=== PATIENT | female | born 1970 | race Hispanic/Latino ===

== ENCOUNTER 2017-04-23 16:54 | Emergency (ER) | payer MEDICARE, MEDICAID ==
[2017-04-23] MEDS ORDERED: Ondansetron ODT 4 MG TAB ONE (17:17)
[2017-04-23] MEDS ORDERED: Ketorolac Tromethamine 30 MG/ML VIAL ONE (17:17)
== END 2017-04-23 18:02 | disposition home or self-care (01) ==
LOC: ERS 16:54
DX: J11.1 Influenza due to unidentified influenza virus with other respiratory manifestations (principal); E11.9 Type 2 diabetes mellitus without complications; F41.9 Anxiety disorder, unspecified; Z87.891 Personal history of nicotine dependence
CPT/HCPCS: 94640; 96372; J1885; J7620; Q0162

== ENCOUNTER 2017-09-12 19:27 | Emergency (ER) | payer MEDICARE, MEDICAID ==
[2017-09-12] MEDS ORDERED: Sulfameth/Trimethoprim DS 800-160mg TAB ONE (20:01)
[2017-09-12] MEDS ORDERED: Ondansetron ODT 8 MG TAB ONE (20:01)
[2017-09-12] MEDS ORDERED: Cephalexin 250 MG CAP ONE (20:01)
[2017-09-12] MEDS ORDERED: Ketorolac Tromethamine 30 MG/ML VIAL ONE (20:06)
== END 2017-09-12 20:41 | disposition home or self-care (01) ==
LOC: ERS 19:27
DX: N61.0 Mastitis without abscess (principal); B37.2 Candidiasis of skin and nail; R11.0 Nausea; E11.9 Type 2 diabetes mellitus without complications; F41.9 Anxiety disorder, unspecified; Z87.891 Personal history of nicotine dependence; Z79.4 Long term (current) use of insulin; Z79.899 Other long term (current) drug therapy
CPT/HCPCS: 96372; J1885

== ENCOUNTER 2017-09-28 14:45 | Outpatient (CLI) | payer MEDICARE, MEDICAID | END 2017-09-28 14:46 | disposition home or self-care (01) | LOC: BICMRI 14:45 | PROVIDERS: ATTEND Orthopaedic Surgery | DX: M46.92 Unspecified inflammatory spondylopathy, cervical region (principal); M47.22 Other spondylosis with radiculopathy, cervical region | CPT/HCPCS: 72141 ==

== ENCOUNTER 2017-12-14 11:20 | Outpatient (CLI) | payer MEDICARE, MEDICAID ==
[2017-12-14 12:47] LABS: Hemoglobin 14.2 g/dL (12.0-16.0); Mean Corpuscular HGB CONC 32.6 g/dL (32.0-36.0); Mean Corpuscular Hemoglobin 28.6 pg (27.0-31.0); Mean Corpuscular Volume 87.8 fL (78.0-98.0); Mean Platelet Volume 7.6 fL (7.4-10.4); Platelet Count 276 thou/uL (130-400); RBC Distribution Width 11.8 % (11.5-14.5); Red Blood Cell (RBC) Count 4.96 mill/uL (4.20-5.40); White Blood Cell (WBC) Count 9.2 thou/uL (4.8-10.8)
[2017-12-14 12:57] LABS: PTT 32.3 SEC (22.9-36.1); Prothrombin Time 13.7 SEC (12.0-14.7)
[2017-12-14 13:18] LABS: Anion Gap 15 mmol/L (10-20); BUN (Urea Nitrogen) 10 mg/dL (7.0-18.7); Calc. Creatinine Clearance 0 mL/min (70-130); Calcium 9.7 mg/dL (7.8-10.44); Carbon Dioxide 19 mmol/L (22-29); Chloride 109 mmol/L (98-107); Estimated GFR-MDRD 87; Glucose 109 mg/dL (70-105); Potassium 3.8 mmol/L (3.5-5.1); Sodium 139 mmol/L (136-145)
--- NOTE | 2017-12-15 07:35 | EKG ---
Test Reason : Blood Pressure : / mmHG Vent. Rate : 084 BPM Atrial Rate : 084 BPM P-R Int : 132 ms QRS Dur : 082 ms QT Int : 354 ms P-R-T Axes : 037 -21 025 degrees QTc Int : 418 ms Normal sinus rhythm Cannot rule out Anterior infarct , age undetermined Abnormal ECG When compared with ECG of 16-NOV-2013 19:02, No significant change was found Confirmed by DR. Devante MACIAS ([id number]) on 12/15/2017 7:35:19 AM Referred By: XOCHILT Confirmed By:DR. Devante MACIAS
== END 2017-12-14 11:21 | disposition home or self-care (01) ==
LOC: LABBT 11:20
PROVIDERS: ATTEND Surgery
DX: Z01.818 Encounter for other preprocedural examination (principal); M54.12 Radiculopathy, cervical region; M48.02 Spinal stenosis, cervical region
CPT/HCPCS: 80048; 85027; 85610; 85730; 93005; 93010

== ENCOUNTER 2017-12-21 06:56 | Day surgery (SDC) | payer MEDICARE, MEDICAID ==
[2017-12-14 12:02] VITALS: BMI 46.3
[2017-12-21] MEDS ORDERED: CEFAZOLIN/Water 2 GM/20 ML SYRINGE ONE (08:59)
[2017-12-21] MEDS ORDERED: Midazolam HCl 2 mg/2 ml Vial ONE ×3 (09:22→12:19)
[2017-12-21] MEDS ORDERED: Fentanyl 100 MCG/2 ML VIAL ONE ×5 (09:55→15:20)
[2017-12-21] MEDS ORDERED: Thrombin 5000 UNITS/5 ML VIAL ONE (10:07)
[2017-12-21] MEDS ORDERED: Sodium Chloride 0.9% 10 ML ONE (10:07)
[2017-12-21] MEDS ORDERED: Promethazine HCl 25 MG/ML VIAL SLOW IVP PRN (11:39)
[2017-12-21] MEDS ORDERED: HYDROmorphone 2 MG/ML VIAL SLOW IVP PRN (11:39)
[2017-12-21] MEDS ORDERED: Morphine Sulfate 2 MG/ML SYRINGE SLOW IVP PRN (11:39)
[2017-12-21] MEDS ORDERED: Promethazine HCl 25 MG/ML VIAL IM PRN ×2 (11:39→12:23)
[2017-12-21] MEDS ORDERED: Ondansetron HCl/PF 4 MG/2 ML Vial IVP PRN (11:39)
[2017-12-21] MEDS ORDERED: Meperidine HCl/PF 25 MG/ML VIAL SLOW IVP PRN (11:39)
[2017-12-21] MEDS ORDERED: Milk Of Magnesia 30 ML UDCUP PO PRN (12:23)
[2017-12-21] MEDS ORDERED: Acetaminophen 325 MG TAB PO PRN (12:23)
[2017-12-21] MEDS ORDERED: Mag-Al 1200 mg/1200 mg/30 ML UDCUP PO PRN (12:23)
[2017-12-21] MEDS ORDERED: Bisacodyl 10 MG SUPP PR PRN (12:23)
[2017-12-21] MEDS ORDERED: Fleet Enema 133 ML BOT PR PRN (12:23)
[2017-12-21] MEDS ORDERED: traMADol HCl 50 MG TAB PO PRN (12:23)
[2017-12-21] MEDS ORDERED: HumaLOG 300 UNITS/3 ML VIAL SC PRN (12:29)
--- NOTE | 2017-12-21 13:43 | OP ---
OR: OR #12. WOUND TYPE: Type 1 wound. SURGEON: Jorge Calvillo M.D. IRRIGATION TAX ASSESSOR COLLECTOR: Winston Foote PA-C. PREPROCEDURE DIAGNOSES: C4-C5 disk extrusion with myelopathy and radiculopathy. POSTPROCEDURE DIAGNOSES: C4-C5 disk extrusion with myelopathy and radiculopathy. PROCEDURE: 1. Anterior C4-C5 diskectomy for decompression of spinal cord and C5 nerve roots. 2. Preparation of endplates for interbody spacer placement packed with local bone autograft obtained from same incision, allograft for arthrodesis. 3. Anterior cervical plate and screw fixation C4-C5. 4. Use of operative microscope for microdissection. PROCEDURE IN DETAIL: After informed consent was obtained from the patient, the patient brought to OR #12. Proper patient pause and identification was carried out. She was placed in excellent general endotracheal anesthesia and positioned supine on the OR table. All appropriate points were well-padd ed, right anterior oblique mattie was drawn out over the right anterior neck that allow for approach to C4-C5 segment. This region was sterilely cleansed, prepared, and draped. Proper patient pause and identification was carried out. The wound was then opened with a combination of sharp, monopolar and blunt dissection proceeded lateral to the larynx and pharynx and medial to the right carotid sheath. We identified the prevertebral layer of deep cervical fascia and the longus colli muscles were swep t laterally. Retractors were placed. Localization film confirmed our area of interest. We then per formed distraction and the microscope was brought in for microdissection. A diskectomy was performed with excellent decompression of the common dural tube and bilateral C5 nerve roots. The endplates w ere prepared, interbody spacer was packed, local bone autograft obtained from same incision, allograf t, and placed at C4-C5 arthrodesis. Copious irrigation, maximizing hemostasis occurred throughout. We then placed a plate of appropriate dimension affixed this to the C4-C5 segments with final tighten ing of the screws. Copious irrigation again occurred as did maximizing hemostasis. The wound was th en closed in anatomic layers over a drain. The patient then emerged from anesthesia.
[2017-12-21] MEDS: Sodium Chloride 0.9% 1,000 ML IV SCH ×2 (17:07→21:01)
[2017-12-21] MEDS: HYDROcodone/Acetaminophen 7.5/325 mg Tablet PO PRN (17:34)
[2017-12-21] MEDS: CEFAZOLIN/Water 2 GM/20 ML SYRINGE SLOW IVP SCH ×2 (19:44→20:56)
[2017-12-21] MEDS ORDERED: EMPAGLIFLOZIN PO SCH (21:00)
[2017-12-21] MEDS ORDERED: METFORMIN HCL PO SCH (21:00)
[2017-12-21] MEDS: tiZANidine HCl 4 MG TAB PO PRN (22:13)
[2017-12-22] MEDS: tiZANidine HCl 4 MG TAB PO PRN ×2 (05:47→11:25)
[2017-12-22] MEDS: CEFAZOLIN/Water 2 GM/20 ML SYRINGE SLOW IVP SCH (05:48)
[2017-12-22] MEDS: HYDROcodone/Acetaminophen 7.5/325 mg Tablet PO PRN (08:59)
[2017-12-22] MEDS ORDERED: INSULIN DEGLUDEC 40 UNIT SC SCH (09:00)
[2017-12-22 12:00] VITALS: BP 116/76; TEMP 97.8
--- NOTE | 2017-12-22 22:35 | DIS-2 ---
Winston Foote PA-C, dictating for Jorge Calvillo MD. DATE OF ADMISSION: 12/21/2017 DATE OF DISCHARGE: 12/22/2017 DISCHARGE DIAGNOSES: 1. Cervical myelopathy and radiculopathy. 2. Cervical herniated nucleus pulposus. 3. Neck pain with bilateral upper extremity pain. HOSPITAL COURSE: Ms. Carter was admitted to undergo C4-C5 ACDF with Dr. Calvillo. Her surgery was witho ut complication and she required one overnight stay to recover postoperatively. At the time of disch arge, she had almost complete resolution of the bilateral upper extremity symptoms, but did have some posterior neck pain. Her JOHN drain was removed and appropriate postoperative education and followup appointments were provided to the patient. At the time of discharge, she has good strength in her bi lateral upper extremities and was walking well. She certainly understood to call the office with que stions or concerns, but otherwise doing well postoperatively.
== END 2017-12-22 12:22 | disposition home or self-care (01) ==
LOC: SDC 06:56 → SURG B 16:53 → SDC 12-22 12:22
PROVIDERS: ATTEND Surgery
PROC: 0RG10A0 Fusion of Cervical Vertebral Joint with Interbody Fusion Device, Anterior Approach, Anterior Column, Open Approach (ICD-10-PCS; principal; 2017-12-21)
PROC: 0RT30ZZ Resection of Cervical Vertebral Disc, Open Approach (ICD-10-PCS; 2017-12-21)
DX: M50.021 Cervical disc disorder at C4-C5 level with myelopathy (principal); M50.121 Cervical disc disorder at C4-C5 level with radiculopathy; Z79.4 Long term (current) use of insulin; Z79.899 Other long term (current) drug therapy; Z88.7 Allergy status to serum and vaccine; Z96.651 Presence of right artificial knee joint
CPT/HCPCS: 36416; 76001; 96374; 96375; 96376; A4216; C1713; C1776; J0131; J2250; J2270; J3010; J3490

== ENCOUNTER 2018-02-07 08:37 | Outpatient (CLI) | payer MEDICARE, MEDICAID ==
--- NOTE | 2018-02-07 10:50 | RAD ---
3 VIEWS CERVICAL SPINE: Date: 02/07/18 COMPARISON: None. HISTORY: Neck pain. Patient has had anterior fusion. FINDINGS: AP, lateral, and open-mouth odontoid views of the cervical spine show the patient to be status post a nterior fusion of C4 and C5 with plate and screws. A disc spacer is seen in good position within the disc space. No prevertebral soft tissue swelling is seen. The vertebral bodies demonstrate normal ali gnment without subluxation. IMPRESSION: Postsurgical changes of the cervical spine, without evidence of complication. POS: VIVI
== END 2018-02-07 08:38 | disposition home or self-care (01) ==
LOC: TBSIIMAG 08:37
PROVIDERS: ATTEND Surgery
DX: M48.02 Spinal stenosis, cervical region (principal); Z98.1 Arthrodesis status
CPT/HCPCS: 72040

== ENCOUNTER 2018-08-10 14:39 | Outpatient (CLI) | payer MEDICARE, MEDICAID ==
--- NOTE | 2018-08-10 15:22 | RAD ---
4 views lumbar spine: 08/10/2018 COMPARISON: None HISTORY: Low back pain with left lower extremity radiculopathy FINDINGS: Lumbar pedicles are intact on frontal imaging. There is facet hypertrophy at L4-5 and L5-S1 . There is disc space narrowing with degenerative endplate changes as well as anterior and posterior osteophyte formation at L5-S1. There is no anterolisthesis or retrolisthesis noted on the n eutral, extension, or flexion lateral views. IMPRESSION: Degenerative change at the lumbosacral junction. No acute findings.
--- NOTE | 2018-08-10 15:28 | MRI ---
EXAM: Lumbar spine MRI without contrast. HISTORY: Low back pain M54.5 COMPARISON: None FINDINGS: Multiplanar, multisequence MRI examination of the lumbar spine is performed. The conus medullaris region appears unremarkable. No evidence for abnormal marrow signal. Generalized disc desiccation changes and ligament and facet hypertrophic changes. T12-L1 disc level: Unremarkable. L1-L2 disc level: Unremarkable. L2-L3 disc level: Mild foraminal stenosis left greater than right L3-L4 disc level: Posterior lateral protrusions with right posterior lateral annular fissure and mode rate right foraminal stenosis. L4-L5 disc level: Diffuse disc bulging with mild bilateral foraminal stenosis. L5-S1 disc level: Focal central and left central protrusion changes with left lateral recess stenosis and left foraminal stenosis with some compression of the left S1 nerve root. IMPRESSION: Focal central and left central protrusion at L5-S1 with left lateral recess and left foraminal stenos is and left S1 nerve root compression. Additional multilevel variable severity foraminal stenosis.
== END 2018-08-10 14:40 | disposition home or self-care (01) ==
LOC: TBSIIMAG 14:39
PROVIDERS: ATTEND Physician Assistant Surgical
DX: M47.27 Other spondylosis with radiculopathy, lumbosacral region (principal); M48.07 Spinal stenosis, lumbosacral region; M51.17 Intervertebral disc disorders with radiculopathy, lumbosacral region; G54.8 Other nerve root and plexus disorders
CPT/HCPCS: 72110; 72148

== ENCOUNTER 2018-08-15 14:26 | Outpatient (CLI) | payer MEDICARE, OTHER ==
--- NOTE | 2018-08-15 16:15 | MRI ---
MR of the left shoulder without contrast INDICATION: Left shoulder pain. Left shoulder pain that extends in the left arm with loss of range o f motion since November 2017. TECHNIQUE: Sagittal T1, axial and coronal PD fat sat, sagittal and coronal T2 fat sat images were obt ained of the left shoulder. COMPARISON: None FINDINGS: Motion artifact limits image detail. Rotator cuff: No full-thickness rotator cuff tear is evident. There is severe tendinosis involving th e supraspinatus and infraspinatus. There is some suggestion of some bursal surface irregularity involving the anterior to mid supraspinatus at the footprint. Glenohumeral joint: Not well seen due to motion artifact Glenoid labrum: There is heterogeneous increased T2 signal involving the superior glenoid labrum and biceps anchor suspicious for degenerative changes of the superior glenoid labrum and biceps anchor. Biceps tendon and biceps anchor: There is severe tendinosis of the intra-articular course of the long head of the biceps tendon. The biceps tendon is located. Acromion clavicular joint: There is moderate to severe AC joint osteoarthrosis Subacromial subdeltoid space: Small amount of fluid is seen within the subacromial subdeltoid bursa. Axillary region: No lymphadenopathy. Surrounding shoulder musculature: Normal. No evidence of atrophy or strain. IMPRESSION: 1. Severe supraspinatus and infraspinatus tendinosis with mild bursal surface irregularity involving the anterior to mid supraspinatus. No full-thickness rotator cuff tear is demonstrated. 2. Severe tendinosis of the intra-articular biceps tendon with prominent degenerative fraying of the superior glenoid labrum and biceps anchor complex. 3. Moderate to severe AC joint osteoarthrosis.
== END 2018-08-15 14:27 | disposition home or self-care (01) ==
LOC: BICMRI 14:26
PROVIDERS: ATTEND Orthopaedic Surgery
DX: M25.512 Pain in left shoulder (principal); M75.82 Other shoulder lesions, left shoulder; M75.22 Bicipital tendinitis, left shoulder; M19.012 Primary osteoarthritis, left shoulder

== ENCOUNTER 2019-02-02 16:01 | Emergency (ER) | payer MEDICARE, MEDICAID ==
--- NOTE | 2019-02-02 16:43 | RAD ---
XR Chest Pa Lat STANDARD HISTORY: Cough COMPARISON: 05/02/2016 FINDINGS: The heart size is normal. The lungs are well expanded without focal areas of consolidation, pneumothorax or pleural effusions. There is continued elevation the right hemidiaphragm. There are postop changes in the lower cervical spine and the right humerus. IMPRESSION: No radiographic evidence of acute cardiopulmonary process.
[2019-02-02 16:49] LABS: #Lymphocytes 2.1 thou/uL (1.20-3.40); #Monocytes 0.5 thou/uL (0.11-0.59); #Neutrophils 4.9 thou/uL (1.40-6.50); %Basophils 0.2 % (0.0-1.0); %Eosinophils 0.4 % (0.0-10.0); %Lymphocytes 28.2 % (21.0-51.0); %Monocytes 5.9 % (0.0-10.0); %Neutrophils 65.4 % (42.0-75.0); Hemoglobin 14.7 g/dL (12.0-16.0); Mean Corpuscular Hemoglobin 29.9 pg (27.0-31.0); Mean Corpuscular Volume 90.7 fL (78.0-98.0); Mean Platelet Volume 7.3 fL (7.4-10.4); Platelet Count 236 thou/uL (130-400); RBC Distribution Width 11.9 % (11.5-14.5); Red Blood Cell (RBC) Count 4.93 mill/uL (4.20-5.40); White Blood Cell (WBC) Count 7.5 thou/uL (4.8-10.8)
[2019-02-02 17:00] LABS: BHCG - Serum Negative (NEGATIVE); Pregs Control Background? CLEAR/WHITE (CLR/WHITE); Pregs Control Bar Appear? YES (CONTROL BAR)
[2019-02-02 17:16] LABS: ALT (SGPT) 34 U/L (8-55); AST (SGOT) 33 U/L (5-34); Albumin 4.5 g/dL (3.5-5.0); Alkaline Phosphatase 74 U/L (40-110); Anion Gap 11 mmol/L (10-20); BUN (Urea Nitrogen) 13 mg/dL (7.0-18.7); Bilirubin, Total 0.4 mg/dL (0.2-1.2); CK (CPK) 119 U/L (29-168); Calc. Creatinine Clearance 0 mL/min (70-130); Calcium 9.4 mg/dL (7.8-10.44); Carbon Dioxide 24 mmol/L (22-29); Chloride 105 mmol/L (98-107); Estimated GFR-MDRD 82; Globulin 2.9 g/dL (2.4-3.5); Glucose 199 mg/dL (70-105); Lipase 54 U/L (8-78); Potassium 3.5 mmol/L (3.5-5.1); Protein, Total 7.4 g/dL (6.0-8.3); Sodium 136 mmol/L (136-145)
[2019-02-02 18:15] LABS: T4 8.4 ug/dL (4.87-11.72); Thyroid Stimulating Hormone 0.6545 uIU/mL (0.35-4.94)
== END 2019-02-02 18:28 | disposition home or self-care (01) ==
LOC: ERS 16:01
DX: R05 Cough (principal); E11.9 Type 2 diabetes mellitus without complications; F41.9 Anxiety disorder, unspecified; Z87.891 Personal history of nicotine dependence; Z79.4 Long term (current) use of insulin
CPT/HCPCS: 36415; 71046; 80053; 82550; 83690; 83880; 84436; 84443; 84484; 84703; 85025; 85379; 93005; 94640; J7620

== ENCOUNTER 2019-04-14 09:02 | Outpatient (CLI) | payer MEDICARE, MEDICAID ==
--- NOTE | 2019-04-14 09:50 | MMO ---
Bilateral MAMMO Bilat Diag [facility]. CLINICAL HISTORY: Patient is 48 years old and is seen for diagnostic exam. The patient has the following family history of breast cancer: maternal aunt, at age 50. The patient has no personal history of cancer. VIEWS: The views performed were: bilateral craniocaudal with tomosynthesis; bilateral mediolateral oblique with tomosynthesis; and bilateral mediolateral with tomosynthesis. FILMS COMPARED: The present examination has been compared to prior imaging studies performed at [facility] on 10/18/2015, 11/17/2016, 03/31/2019 and 04/14/2019. This study has been interpreted with the assistance of computer-aided detection. MAMMOGRAM FINDINGS: There are scattered fibroglandular densities. There is no radiographic abnormality in the region of the palpable abnormality in the right breast at 1 o'clock. No sonographic abnormality is seen in the region of palpable abnormality. In the left breast, there are no suspicious masses, calcifications or areas of architectural distortion. IMPRESSION: THERE IS NO MAMMOGRAPHIC EVIDENCE OF MALIGNANCY. NO MAMMOGRAPHIC OR SONOGRAPHIC ABNORMALITIES ARE PRESENT TO CORRELATE WITH THE SITE OF PALPABLE CONCERN. THE PATIENT WILL BE REFERRED BACK TO HER CLINICIAN FOR FURTHER CARE. BIOPSY SHOULD NOT BE PRECLUDED BY THE ABSCENCE OF IMAGING FINDINGS, IN THE SETTING OF CLINICAL CONCERN FOR MALIGNANCY. THE PATIENT WAS NOTIFIED OF THE EXAM RESULTS PRIOR TO LEAVING THE CENTER. A ROUTINE FOLLOW-UP MAMMOGRAM IN 1 YEAR IS RECOMMENDED. THE RESULTS OF THIS EXAM WERE SENT TO THE PATIENT. ACR BI-RADS Category 1 - Negative MAMMOGRAPHY NOTE: 1. A negative mammogram report should not delay a biopsy if a dominant of clinically suspicious mass is present. 2. Approximately 10% to 15% of breast cancers are not detected by mammography. 3. Adenosis and dense breasts may obscure an underlying neoplasm. Reported by: MICHELL EDWARDS MD Electonically Signed: [id number]
--- NOTE | 2019-04-14 10:31 | ULT ---
RIGHT BREAST DIAGNOSTIC MAMMOGRAM: INDICATIONS: Palpable abnormality in the right breast in the 1 o'clock position, 6 cm from the nipple. FINDINGS: No suspicious sonographic abnormality seen within the palpable region of interest in the right breast . IMPRESSION:BIRADS 1: Negative No suspicious sonographic abnormality within the region of palpable interest in the right breast. Negative imaging should never deter biopsy if findings on clinical examination are suspicious. POS: OFF
== END 2019-04-14 09:03 | disposition home or self-care (01) ==
LOC: BICMAMMO 09:02
PROVIDERS: ATTEND Nurse Practitioner Women's Health
DX: N63.10 Unspecified lump in the right breast, unspecified quadrant (principal)
CPT/HCPCS: 76642; 77066 ×2; G0279 ×2

== ENCOUNTER 2019-05-15 12:42 | Outpatient (CLI) | payer MEDICARE, MEDICAID ==
--- NOTE | 2019-05-15 15:23 | MRI ---
MRI LUMBAR SPINE WITHOUT CONTRAST: Date: 05/15/2019 INDICATION: History of low back pain with left foot drop for the last 2 months. COMPARISON: Prior MRI lumbar spine dated 08/10/2018. FINDINGS: No acute fracture is evident. Conus is seen to terminate proximally at L1-2. Loss of normal disc sign al and height at L5-S1. At L5-S1, there is an asymmetric to the left broad based disc bulge inducing severe left lateral rece ss narrowing with probable impingement of the traversing left S1 nerve root. There is loss of disc sp jair height in addition to facet osteoarthrosis inducing mild to moderate right and moderate left neur al foraminal narrowing, which is stable. At L4-5, there is a broad based bulge with facet hypertrophy, but no appreciable central canal narrow ing. There is mild neural foraminal encroachment bilaterally. At L3-4, there is a broad based disc bulge with a superimposed far lateral right disc protrusion. Con stellation of findings induces mild left and mild to moderate right neural foraminal narrowing which is stable appearing. At L2-3, there is a broad based bulge with facet hypertrophy inducing mild neural foraminal narrowing bilaterally, which is stable appearing. At L1-L2, there is no appreciable central canal or neural foraminal narrowing. At T12-L1, there is no appreciable central canal or neural foraminal narrowing. IMPRESSION: 1. Stable multilevel spondylosis of the lumbar spine most pronounced at L5-S1 where there is a broad based, asymmetric to the left, disc bulge with facet hypertrophy inducing severe left lateral recess narrowing with probable impingement of the traversing left S1 nerve root. 2. Stable moderate left and mild to moderate right neural foraminal narrowing at L5-S1. 3. Stable mild neural foraminal narrowing bilaterally at L4-5 and L2-3. 4. Stable mild to moderate right and mild left neural foraminal narrowing at L3-4. POS: CET
== END 2019-05-15 12:43 | disposition home or self-care (01) ==
LOC: TBSIIMAG 12:42
PROVIDERS: ATTEND Surgery
DX: M51.16 Intervertebral disc disorders with radiculopathy, lumbar region (principal); M48.061 Spinal stenosis, lumbar region without neurogenic claudication; M48.07 Spinal stenosis, lumbosacral region; M47.26 Other spondylosis with radiculopathy, lumbar region; M47.817 Spondylosis without myelopathy or radiculopathy, lumbosacral region; M51.87 Other intervertebral disc disorders, lumbosacral region
CPT/HCPCS: 72148

== ENCOUNTER 2019-07-04 05:35 | Day surgery (SDC) | payer MEDICARE, MEDICAID ==
[2019-07-03 15:48] VITALS: BMI 39.6
[2019-07-04 06:48] LABS: #Lymphocytes 2.5 thou/uL (1.20-3.40); #Monocytes 0.5 thou/uL (0.11-0.59); %Basophils 0.5 % (0.0-1.0); %Lymphocytes 30.7 % (21.0-51.0); %Monocytes 6.1 % (0.0-10.0); %Neutrophils 62.6 % (42.0-75.0); Hemoglobin 15.4 g/dL (12.0-16.0); Mean Corpuscular HGB CONC 34.5 g/dL (32.0-36.0); Mean Corpuscular Hemoglobin 31.8 pg (27.0-31.0); Mean Corpuscular Volume 92.3 fL (78.0-98.0); Platelet Count 232 thou/uL (130-400); RBC Distribution Width 12.6 % (11.5-14.5); Red Blood Cell (RBC) Count 4.85 mill/uL (4.20-5.40)
[2019-07-04] MEDS ORDERED: Fentanyl 100 MCG/2 ML VIAL ONE ×4 (06:59→10:28)
[2019-07-04] MEDS ORDERED: Midazolam HCl 2 mg/2 ml Vial ONE (06:59)
[2019-07-04 07:05] LABS: INR-International Normal Ratio 0.9; Prothrombin Time 12.6 SEC (12.0-14.7)
[2019-07-04 07:11] LABS: Anion Gap 13 mmol/L (10-20); BUN (Urea Nitrogen) 15 mg/dL (7.0-18.7); Calc. Creatinine Clearance 144 mL/min (70-130); Calcium 9.5 mg/dL (7.8-10.44); Carbon Dioxide 24 mmol/L (22-29); Chloride 105 mmol/L (98-107); Estimated GFR-MDRD 86; Glucose 117 mg/dL (70-105); Sodium 138 mmol/L (136-145)
[2019-07-04] MEDS ORDERED: SUGAMMADEX SODIUM 500 MG/5 ML VIAL ONE (07:23)
[2019-07-04] MEDS ORDERED: Mag-Al 1200 mg/1200 mg/30 ML UDCUP PO PRN (10:02)
[2019-07-04] MEDS ORDERED: traMADol HCl 50 MG TAB PO PRN (10:02)
[2019-07-04] MEDS ORDERED: tiZANidine HCl 4 MG TAB PO PRN (10:02)
[2019-07-04] MEDS ORDERED: Morphine 2 MG/ML SYRINGE SLOW IVP PRN (10:02)
[2019-07-04] MEDS ORDERED: Bisacodyl 10 MG SUPP PR PRN (10:02)
[2019-07-04] MEDS ORDERED: Acetaminophen 325 MG TAB PO PRN (10:02)
[2019-07-04] MEDS ORDERED: Ondansetron PF 4 MG/2 ML Vial IVP PRN (10:02)
[2019-07-04] MEDS ORDERED: Acetaminophen/Codeine 30-300mg Tablet PO PRN (10:02)
[2019-07-04] MEDS ORDERED: Milk Of Magnesia 30 ML UDCUP PO PRN (10:02)
[2019-07-04] MEDS ORDERED: diphenhydrAMINE 50 MG/ML VIAL ONE (10:14)
[2019-07-04] MEDS ORDERED: Ondansetron PF 4 MG/2 ML Vial ONE (10:14)
[2019-07-04] MEDS ORDERED: Ketorolac Tromethamine 30 MG/ML VIAL ONE (10:14)
[2019-07-04] MEDS ORDERED: Metoclopramide HCl 10 MG/2 ML VIAL ONE (10:14)
[2019-07-04] MEDS ORDERED: PROPOFOL 200 MG/20 ML VIAL ONE (10:14)
[2019-07-04] MEDS ORDERED: Glycopyrrolate 0.2 MG/ML 5 ML SYRINGE ONE (10:14)
[2019-07-04] MEDS ORDERED: Rocuronium Bromide 10 MG/ML (10ML VIAL) ONE (10:14)
[2019-07-04] MEDS: Sodium Chloride 0.9% 1,000 ML IV SCH ×2 (10:15→23:25)
--- NOTE | 2019-07-04 10:51 | OP ---
DATE OF PROCEDURE: 07/04/2019 SANITATION TRUCK CLEANER: Serena Rodrigues PA-C. PREPROCEDURE DIAGNOSIS: Left low back and leg pain with left footdrop due to left L5 and left S1 radiculopathy. POSTPROCEDURE DIAGNOSIS: Left low back and leg pain with left footdrop due to left L5 and left S1 radiculopathy. PROCEDURES PERFORMED: 1. Left L4-L5 and left L5-S1 hemilaminotomies, foraminotomies, and diskectomy. 2. Use of operative microscope for microdissection. DESCRIPTION OF PROCEDURE: After informed consent was obtained from the patient, the patient was brought to the OR. Proper patient, pause, and identification were carried out. She was placed under excellent general endotracheal anesthesia, positioned prone on the OR table. All appropriate points were padded. We identified the L4-L5 and L5-S1 segments. These regions were sterilely cleansed, prepared, and draped. Proper patient, pause, and identification were carried out. The wound was then opened with combination of sharp, monopolar, and blunt dissection. The left L4-L5 and left L5-S1 segments were exposed. Localization film confirmed our area of interest. We then performed a left L4-L5 and left L5-S1 hemilaminotomies, foraminotomies, and diskectomy. We brought the microscope in for microdissection with excellent decompression of the left L4, left L5, and left S1 nerve roots. Copious irrigation occurred throughout as did maximizing hemostasis. The wound was then closed in anatomic layers following sprinkling of vancomycin powder. Job ID: [id number]
[2019-07-04] MEDS: HYDROcodone/Acetaminophen 7.5/325 mg Tablet PO PRN ×2 (15:18→20:02)
[2019-07-04] MEDS ORDERED: ICOSAPENT ETHYL 2 GM PO SCH (17:00)
[2019-07-04] MEDS: Icosapent Ethyl 1 GM CAPSULE PO SCH (17:27)
[2019-07-04] MEDS: metFORMIN 500 MG TAB PO SCH (17:27)
[2019-07-04] MEDS: Empagliflozin 25 MG TAB PO SCH (17:27)
[2019-07-04] MEDS: CEFAZOLIN 2 GM in Premix Bag 1 BAG IVPB SCH ×2 (17:30→23:25)
[2019-07-05] MEDS: HYDROcodone/Acetaminophen 7.5/325 mg Tablet PO PRN ×2 (05:20→10:44)
[2019-07-05] MEDS: metFORMIN 500 MG TAB PO SCH (08:08)
[2019-07-05] MEDS: Icosapent Ethyl 1 GM CAPSULE PO SCH (08:08)
[2019-07-05] MEDS: Empagliflozin 25 MG TAB PO SCH (08:08)
[2019-07-05] MEDS ORDERED: Non-Formulary Item 1 EACH (Pitavastatin Calcium 2 MG) PO SCH (09:00)
[2019-07-05] MEDS ORDERED: Insulin Glargine 40 UNITS in Pre-Filled Syringe 1 EACH SC SCH (09:00)
[2019-07-05] MEDS ORDERED: CHOLECALCIFEROL PO SCH (09:00)
[2019-07-05] MEDS ORDERED: Cholecalciferol (Vitamin D3) 400 UNITS TAB PO SCH (09:00)
[2019-07-05] MEDS ORDERED: Non-Formulary Item 1 EACH (Insulin Degludec [Tresiba Flextouch U-100] 40 UNIT) SC SCH (09:00)
[2019-07-05] MEDS ORDERED: Atorvastatin Calcium 10 MG TAB PO SCH (09:00)
--- NOTE | 2019-07-05 09:33 | PRG ---
DATE OF SERVICE: 07/05/2019 Ms. Carter is postoperative day 1 from left-sided L4-L5 and L5-S1 decompression. She has had resolution in her left leg pain with improvement in her footdrop, although still present to a degree. She is already ambulating and very pleased with her outcome. We went over do's and don'ts in the postoperative period, and she will be dismissed. Job ID: [id number]
[2019-07-05 11:19] VITALS: BP 125/78; TEMP 98.1
--- NOTE | 2019-07-05 22:43 | EKG ---
Test Reason : PREOP Blood Pressure : / mmHG Vent. Rate : 081 BPM Atrial Rate : 081 BPM P-R Int : 124 ms QRS Dur : 082 ms QT Int : 352 ms P-R-T Axes : 040 -17 028 degrees QTc Int : 408 ms Normal sinus rhythm Normal ECG When compared with ECG of 02-FEB-2019 16:52, No significant change was found Confirmed by Filemon GILL ([id number]) on 07/05/2019 10:43:18 PM Referred By: XOCHILT Confirmed By:Filemon GILL
== END 2019-07-05 12:25 | disposition home or self-care (01) ==
LOC: SDC 05:35 → SURG A 11:15 → SDC 07-05 12:25
PROVIDERS: ATTEND Surgery
PROC: 0SB20ZZ Excision of Lumbar Vertebral Disc, Open Approach (ICD-10-PCS; principal; 2019-07-04)
PROC: 01NB0ZZ Release Lumbar Nerve, Open Approach (ICD-10-PCS; 2019-07-04)
DX: M51.06 Intervertebral disc disorders with myelopathy, lumbar region (principal); M51.17 Intervertebral disc disorders with radiculopathy, lumbosacral region; M48.061 Spinal stenosis, lumbar region without neurogenic claudication; M48.07 Spinal stenosis, lumbosacral region; M21.372 Foot drop, left foot; Z79.4 Long term (current) use of insulin; Z79.899 Other long term (current) drug therapy; Z88.7 Allergy status to serum and vaccine
CPT/HCPCS: 36415; 36416; 76000; 80048; 85025; 85610; 85730; 93005; 93010; J0690; J1200; J1815; J1885; J2250; J2405; J2704; J2765; J3010

== ENCOUNTER 2019-11-05 08:48 | Emergency (ER) | payer MEDICARE, MEDICAID, OTHER ==
[2019-11-05] MEDS ORDERED: Albuterol 200 PUFF (6.7GM INHALER) ONE (09:19)
[2019-11-05 09:31] LABS: #Lymphocytes 1.7 thou/uL (1.20-3.40); #Monocytes 0.3 thou/uL (0.11-0.59); #Neutrophils 3.2 thou/uL (1.40-6.50); %Basophils 0.1 % (0.0-1.0); %Eosinophils 0.1 % (0.0-10.0); %Lymphocytes 32.2 % (21.0-51.0); %Monocytes 5.8 % (0.0-10.0); %Neutrophils 61.8 % (42.0-75.0); Hemoglobin 14.4 g/dL (12.0-16.0); Mean Corpuscular HGB CONC 32.4 g/dL (32.0-36.0); Mean Corpuscular Hemoglobin 29.6 pg (27.0-31.0); Mean Corpuscular Volume 91.5 fL (78.0-98.0); Mean Platelet Volume 7.8 fL (7.4-10.4); Platelet Count 182 thou/uL (130-400); RBC Distribution Width 11.6 % (11.5-14.5); Red Blood Cell (RBC) Count 4.85 mill/uL (4.20-5.40); White Blood Cell (WBC) Count 5.2 thou/uL (4.8-10.8)
[2019-11-05 09:51] LABS: ALT (SGPT) 26 U/L (8-55); AST (SGOT) 28 U/L (5-34); Albumin 4.2 g/dL (3.5-5.0); Alkaline Phosphatase 57 U/L (40-110); Anion Gap 12 mmol/L (10-20); BUN (Urea Nitrogen) 10 mg/dL (7.0-18.7); Bilirubin, Total 0.3 mg/dL (0.2-1.2); Calc. Creatinine Clearance 0 mL/min (70-130); Calcium 9.3 mg/dL (7.8-10.44); Carbon Dioxide 26 mmol/L (22-29); Chloride 108 mmol/L (98-107); Estimated GFR-MDRD 87; Globulin 2.9 g/dL (2.4-3.5); Glucose 159 mg/dL (70-105); Potassium 3.5 mmol/L (3.5-5.1); Protein, Total 7.1 g/dL (6.0-8.3); Sodium 142 mmol/L (136-145)
--- NOTE | 2019-11-05 11:01 | RAD ---
CHEST 1 VIEW: INDICATION: Cough, shortness of breath, chest discomfort, headache, and afebrile. COMPARISON: Prior exam dated 03/09/2009. FINDINGS: No consolidation, pleural effusion, or pneumothorax is evident. Heart size is normal. There is part ial visualization of an ACDF plate involving the cervical spine extending to the C6 vertebral level. There is a suture anchor within the right humeral head. IMPRESSION: No definite acute cardiopulmonary abnormality. POS: BH
[2019-11-06 12:19] LABS: SARS-CoV-2 MS2 Positive; SARS-CoV-2 N Gene Positive; SARS-CoV-2 S Gene Positive; SARS-CoV-2 by NAA DETECTED (NotDetected); SARS-CoV-2 orf1ab Positive
== END 2019-11-05 11:00 | disposition home or self-care (01) ==
LOC: ERS 08:48
DX: U07.1 COVID-19 (principal); E11.9 Type 2 diabetes mellitus without complications; F41.9 Anxiety disorder, unspecified; Z87.891 Personal history of nicotine dependence; Z79.899 Other long term (current) drug therapy
CPT/HCPCS: 71045; 80053; 84484; 85025; 93005; 99284; U0003; 36415; 87635

== ENCOUNTER 2020-10-07 07:30 | Emergency (ER) | payer MEDICARE, MEDICAID ==
[2020-10-07 08:44] LABS: #Lymphocytes 0.9 thou/uL (1.20-3.40); #Monocytes 0.4 thou/uL (0.11-0.59); #Neutrophils 7.5 thou/uL (1.40-6.50); %Basophils 0.4 % (0.0-1.0); %Eosinophils 0.1 % (0.0-10.0); %Lymphocytes 10.1 % (21.0-51.0); %Monocytes 4.5 % (0.0-10.0); Hemoglobin 14.5 g/dL (12.0-16.0); Mean Corpuscular Hemoglobin 30.8 pg (27.0-31.0); Mean Corpuscular Volume 93.1 fL (78.0-98.0); Mean Platelet Volume 7.3 fL (7.4-10.4); Platelet Count 212 thou/uL (130-400); RBC Distribution Width 11.4 % (11.5-14.5); White Blood Cell (WBC) Count 8.8 thou/uL (4.8-10.8)
[2020-10-07 09:03] LABS: ALT (SGPT) 36 U/L (8-55); AST (SGOT) 36 U/L (5-34); Alkaline Phosphatase 85 U/L (40-110); Anion Gap 13 mmol/L (10-20); BUN (Urea Nitrogen) 15 mg/dL (7.0-18.7); Bilirubin, Total 0.5 mg/dL (0.2-1.2); Calc. Creatinine Clearance 0 mL/min (70-130); Carbon Dioxide 25 mmol/L (22-29); Chloride 102 mmol/L (98-107); Globulin 2.8 g/dL (2.4-3.5); Glucose 240 mg/dL (70-105); Lipase 30 U/L (8-78); Potassium 4.4 mmol/L (3.5-5.1); Protein, Total 6.8 g/dL (6.0-8.3); Sodium 136 mmol/L (136-145)
== END 2020-10-07 12:29 | disposition home or self-care (01) ==
LOC: ERS 07:30
DX: R53.1 Weakness (principal); R10.9 Unspecified abdominal pain; R10.816 Epigastric abdominal tenderness; R42 Dizziness and giddiness; R11.0 Nausea; E11.9 Type 2 diabetes mellitus without complications; Z87.891 Personal history of nicotine dependence; Z79.899 Other long term (current) drug therapy
CPT/HCPCS: 36415; 80053; 83690; 85025; 93005

== ENCOUNTER 2020-10-30 17:13 | Emergency (ER) | payer MEDICARE, MEDICAID | END 2020-10-30 19:42 | disposition left against medical advice (07) | LOC: ERS 17:13 | DX: Z53.21 Procedure and treatment not carried out due to patient leaving prior to being seen by health care provider (principal) ==

== ENCOUNTER 2021-01-08 01:44 | Observation (INO) | payer MEDICARE, MEDICAID ==
[2021-01-08] MEDS ORDERED: Ondansetron PF 4 MG/2 ML Vial ONE ×2 (02:04→10:41)
[2021-01-08] MEDS ORDERED: Ketorolac Tromethamine 30 MG/ML VIAL ONE ×2 (02:05→10:41)
[2021-01-08 02:39] LABS: #Lymphocytes 2.1 thou/uL (1.20-3.40); #Monocytes 0.6 thou/uL (0.11-0.59); #Neutrophils 11.2 thou/uL (1.40-6.50); %Basophils 0.2 % (0.0-1.0); %Lymphocytes 14.9 % (21.0-51.0); %Monocytes 4.2 % (0.0-10.0); %Neutrophils 80.7 % (42.0-75.0); Hemoglobin 15.7 g/dL (12.0-16.0); Mean Corpuscular HGB CONC 34.3 g/dL (32.0-36.0); Mean Corpuscular Hemoglobin 30.7 pg (27.0-31.0); Mean Corpuscular Volume 89.7 fL (78.0-98.0); Mean Platelet Volume 7.9 fL (7.4-10.4); Platelet Count 218 thou/uL (130-400); White Blood Cell (WBC) Count 13.8 thou/uL (4.8-10.8)
[2021-01-08 03:01] LABS: ALT (SGPT) 33 U/L (8-55); AST (SGOT) 36 U/L (5-34); Albumin 4.5 g/dL (3.5-5.0); Alkaline Phosphatase 100 U/L (40-110); Anion Gap 18 mmol/L (10-20); BUN (Urea Nitrogen) 11 mg/dL (7.0-18.7); Bilirubin, Total 0.6 mg/dL (0.2-1.2); Calc. Creatinine Clearance 0 mL/min (70-130); Calcium 9.7 mg/dL (7.8-10.44); Carbon Dioxide 20 mmol/L (22-29); Chloride 103 mmol/L (98-107); Globulin 3.2 g/dL (2.4-3.5); Glucose 254 mg/dL (70-105); Lipase 48 U/L (8-78); Potassium 3.8 mmol/L (3.5-5.1); Protein, Total 7.7 g/dL (6.0-8.3); Sodium 137 mmol/L (136-145)
[2021-01-08 05:41] LABS: SARS-CoV-2 NAA Rapid Test Not Detected (NotDetected)
[2021-01-08] MEDS ORDERED: Piperacillin/Tazobactam 3.375 GM VIAL ONE (06:16)
[2021-01-08] MEDS ORDERED: Ondansetron PF 4 MG/2 ML Vial IVP PRN ×2 (06:29→11:32)
[2021-01-08] MEDS ORDERED: Ondansetron ODT 4 MG TAB PO PRN (06:29)
[2021-01-08] MEDS ORDERED: Morphine 2 MG/ML VIAL SLOW IVP PRN ×2 (06:29→11:32)
[2021-01-08] MEDS ORDERED: cefOXitin Sodium/Dextrose,Iso 2 GM in Premix Bag 1 BAG IVPB SCH (07:30)
[2021-01-08] MEDS ORDERED: Iopamidol 370 76% 100 ML VIAL ONE (09:07)
[2021-01-08 09:21] VITALS: BMI 39.0
[2021-01-08] MEDS ORDERED: EPINEPHrine 1 MG/ML AMP ONE (10:03)
[2021-01-08] MEDS ORDERED: Bupivacaine 0.25% HCL 30 ML VIAL ONE (10:03)
[2021-01-08] MEDS ORDERED: Fentanyl 100 MCG/2 ML VIAL ONE (10:10)
[2021-01-08] MEDS ORDERED: Midazolam HCl 2 mg/2 ml Vial ONE (10:10)
[2021-01-08] MEDS ORDERED: cefOXitin Sodium/Dextrose 2 GM/50 ML BAG ONE (10:19)
[2021-01-08] MEDS ORDERED: Glycopyrrolate 0.2 MG/ML 5 ML SYRINGE ONE (10:41)
[2021-01-08] MEDS ORDERED: Dexamethasone 20 MG/5 ML VIAL ONE (10:41)
[2021-01-08] MEDS ORDERED: Rocuronium Bromide 10 MG/ML (10ML VIAL) ONE (10:41)
[2021-01-08] MEDS ORDERED: PROPOFOL 200 MG/20 ML VIAL ONE (10:41)
[2021-01-08] MEDS ORDERED: Lidocaine 1% PF 5 ML VIAL ONE (10:41)
[2021-01-08] MEDS ORDERED: PHENYLEPHRINE-NS 100 MCG/ML 10 ML SYRINGE ONE (10:41)
[2021-01-08] MEDS ORDERED: Succinylcholine 200 MG/10 ml SYRINGE FS ONE (10:41)
[2021-01-08] MEDS ORDERED: Dextrose 50% Abboject 50 ML SYRINGE SLOW IVP PRN (11:32)
[2021-01-08] MEDS ORDERED: Promethazine HCl 25 MG/ML VIAL IM PRN ×2 (11:32→11:38)
[2021-01-08] MEDS ORDERED: Morphine 4 MG/ML VIAL SLOW IVP PRN (11:32)
[2021-01-08] MEDS ORDERED: hydrALAZINE 20 MG/ML VIAL SLOW IVP PRN (11:32)
[2021-01-08] MEDS ORDERED: Dextrose 5% in Water 1,000 ML IV PRN (11:32)
[2021-01-08] MEDS ORDERED: Ondansetron HCl/PF 4 MG/2 ML Vial IVP PRN (11:38)
[2021-01-08] MEDS ORDERED: HYDROmorphone 2 MG/ML VIAL SLOW IVP PRN (11:38)
[2021-01-08] MEDS ORDERED: Promethazine HCl 25 MG/ML VIAL IVPB PRN (11:38)
[2021-01-08] MEDS ORDERED: Promethazine HCl 25 MG/ML VIAL ONE (11:50)
[2021-01-08] MEDS: Ketorolac Tromethamine 30 MG/ML VIAL IVP SCH ×2 (12:32→18:34)
[2021-01-08] MEDS: Sodium Chloride 0.9% 1,000 ML IV SCH ×2 (13:54→20:36)
[2021-01-08] MEDS: Piperacillin/Tazobactam 3.375 GM in Sodium Chloride 0.9% 100 ML IVPB SCH ×2 (13:54→20:31)
[2021-01-08] MEDS ORDERED: Piperacillin/Tazobactam 3.375 GM in Sodium Chloride 0.9% 100 ML IVPB SCH (14:00)
[2021-01-08] MEDS: Famotidine/PF 20 mg/2ml Vial SLOW IVP SCH (20:29)
[2021-01-08] MEDS: Famotidine 20 MG TAB PO SCH (20:31)
[2021-01-09] MEDS: Ketorolac Tromethamine 30 MG/ML VIAL IVP SCH ×3 (00:08→11:56)
[2021-01-09] MEDS: Piperacillin/Tazobactam 3.375 GM in Sodium Chloride 0.9% 100 ML IVPB SCH (05:58)
[2021-01-09] MEDS: Sodium Chloride 0.9% 1,000 ML IV SCH (05:58)
[2021-01-09 06:37] LABS: #Lymphocytes 2.1 thou/uL (1.20-3.40); #Monocytes 0.6 thou/uL (0.11-0.59); #Neutrophils 7.5 thou/uL (1.40-6.50); %Eosinophils 0.1 % (0.0-10.0); %Lymphocytes 20.6 % (21.0-51.0); %Monocytes 5.5 % (0.0-10.0); %Neutrophils 73.8 % (42.0-75.0); Hemoglobin 12.1 g/dL (12.0-16.0); Mean Corpuscular HGB CONC 33.4 g/dL (32.0-36.0); Mean Corpuscular Hemoglobin 30.4 pg (27.0-31.0); Mean Platelet Volume 7.8 fL (7.4-10.4); Platelet Count 183 thou/uL (130-400); Red Blood Cell (RBC) Count 3.99 mill/uL (4.20-5.40); White Blood Cell (WBC) Count 10.1 thou/uL (4.8-10.8)
[2021-01-09 06:51] LABS: Anion Gap 9 mmol/L (10-20); BUN (Urea Nitrogen) 11 mg/dL (7.0-18.7); Calc. Creatinine Clearance 156 mL/min (70-130); Calcium 8.3 mg/dL (7.8-10.44); Carbon Dioxide 25 mmol/L (22-29); Chloride 108 mmol/L (98-107); Glucose 188 mg/dL (70-105); Potassium 3.8 mmol/L (3.5-5.1); Sodium 138 mmol/L (136-145)
[2021-01-09 08:22] VITALS: TEMP 98
[2021-01-09] MEDS ORDERED: Enoxaparin Sodium 40 MG/0.4 ML SYRINGE SC SCH (09:00)
[2021-01-09] MEDS: Famotidine 20 MG TAB PO SCH (10:02)
[2021-01-09] MEDS: Famotidine/PF 20 mg/2ml Vial SLOW IVP SCH (10:02)
[2021-01-09 12:54] VITALS: BP 117/74
== END 2021-01-09 14:24 | disposition home or self-care (01) ==
LOC: ERS 01:44 → SURG A 03:43 → INTOOBSV 03:43
PROVIDERS: ADMIT Surgery; ATTEND Surgery
PROC: 0DTJ4ZZ Resection of Appendix, Percutaneous Endoscopic Approach (ICD-10-PCS; principal; 2021-01-08)
DX: K35.80 Unspecified acute appendicitis (principal); E11.9 Type 2 diabetes mellitus without complications; E66.9 Obesity, unspecified; Z68.39 Body mass index [BMI] 39.0-39.9, adult; Z87.891 Personal history of nicotine dependence; Z79.4 Long term (current) use of insulin; Z79.899 Other long term (current) drug therapy; Z88.7 Allergy status to serum and vaccine; Z98.1 Arthrodesis status; Z20.822 Contact with and (suspected) exposure to COVID-19
CPT/HCPCS: 44970; 74177; 80048; 80053; 82962; 83690; 85025 ×2; 96372; 96375; 96376 ×2; G0378 ×3; J2270; U0002; 36415; 36416; 88304; J0171; J0694; J1100; J1650; J1885; J2250; J2405; J2543; J2550; J2704; J3010; J3490; J7050; Q0162; Q9967; S0020

== ENCOUNTER 2021-09-25 14:36 | Emergency (ER) | payer MEDICARE, MEDICAID ==
[~2021-09-25 14:36] MED LIST: ISOVUE-370 76%-LOCM 1 ML ONE
[2021-09-25 15:56] LABS: #Lymphocytes 2.1 thou/uL (1.20-3.40); #Monocytes 0.6 thou/uL (0.11-0.59); #Neutrophils 5.8 thou/uL (1.40-6.50); %Basophils 0.1 % (0.0-1.0); %Eosinophils 0.2 % (0.0-10.0); %Lymphocytes 24.1 % (21.0-51.0); %Monocytes 7.1 % (0.0-10.0); %Neutrophils 68.5 % (42.0-75.0); Mean Corpuscular Hemoglobin 29.7 pg (27.0-31.0); Mean Corpuscular Volume 90.1 fL (78.0-98.0); Mean Platelet Volume 6.5 fL (7.4-10.4); Platelet Count 304 thou/uL (130-400); RBC Distribution Width 11.2 % (11.5-14.5); Red Blood Cell (RBC) Count 4.72 mill/uL (4.20-5.40); White Blood Cell (WBC) Count 8.5 thou/uL (4.8-10.8)
[2021-09-25] MEDS ORDERED: Morphine 4 MG/ML VIAL ONE (16:07)
[2021-09-25] MEDS ORDERED: Ondansetron PF 4 MG/2 ML Vial ONE (16:07)
[2021-09-25 16:18] LABS: ALT (SGPT) 26 U/L (8-55); AST (SGOT) 24 U/L (5-34); Albumin 3.8 g/dL (3.5-5.0); Alkaline Phosphatase 147 U/L (40-110); Anion Gap 16 mmol/L (10-20); BUN (Urea Nitrogen) 9 mg/dL (7.0-18.7); Bilirubin, Total 0.7 mg/dL (0.2-1.2); Calc. Creatinine Clearance 0 mL/min (70-130); Calcium 9.1 mg/dL (7.8-10.44); Carbon Dioxide 24 mmol/L (22-29); Chloride 97 mmol/L (98-107); Globulin 3.2 g/dL (2.4-3.5); Glucose 323 mg/dL (70-105); Lipase 36 U/L (8-78); Potassium 4.4 mmol/L (3.5-5.1); Sodium 133 mmol/L (136-145)
[2021-09-25 16:53] LABS: Bacteria/HPF 3+ HPF (None Seen); Bilirubin Negative (Negative); Blood, Urine 1+ (Negative); Clarity Turbid (Clear); Glucose, Urine (Dipstick) Greater than 1000 mg/dL (Negative); Ketone, Urine Negative (Negative); Leukocyte 250 Leu/uL (Negative); Nitrite 2+ (Negative); Protein, Urine (Dipstick) Negative (Neg-Trace); Specific Gravity, Urine 1.027 (1.002-1.036); Squamous Epithelial None Seen HPF (0-3); WBC/HPF Greater than 50 HPF (0-3); pH, Urine 5.5 (5.0-9.0)
== END 2021-09-25 18:15 | disposition home or self-care (01) ==
LOC: ERS 14:36
DX: N39.0 Urinary tract infection, site not specified (principal); M46.1 Sacroiliitis, not elsewhere classified; Q63.9 Congenital malformation of kidney, unspecified; Z87.891 Personal history of nicotine dependence; E11.9 Type 2 diabetes mellitus without complications; Z79.899 Other long term (current) drug therapy
CPT/HCPCS: 71260; 74177; 80053; 81003; 81015; 83690; 85025; 96361; 96374; 96375; J2270; J2405; Q9966

== ENCOUNTER 2021-11-18 00:55 | Emergency (ER) | payer OTHER, MEDICAID ==
[2021-11-18] MEDS ORDERED: Morphine 4 MG/ML VIAL ONE (02:25)
[2021-11-18] MEDS ORDERED: Ketorolac Tromethamine 30 MG/ML VIAL ONE (02:51)
[2021-11-18] MEDS ORDERED: Ondansetron PF 4 MG/2 ML Vial ONE (02:51)
[2021-11-18 04:06] LABS: ALT (SGPT) 49 U/L (8-55); AST (SGOT) 38 U/L (5-34); Albumin 4.2 g/dL (3.5-5.0); Alkaline Phosphatase 146 U/L (40-110); Anion Gap 19 mmol/L (10-20); BUN (Urea Nitrogen) 15 mg/dL (9.8-20.1); Bilirubin, Total 0.5 mg/dL (0.2-1.2); Calc. Creatinine Clearance 0 mL/min (70-130); Calcium 9.7 mg/dL (7.8-10.44); Carbon Dioxide 20 mmol/L (22-29); Chloride 99 mmol/L (98-107); Estimated GFR 83; Globulin 3.6 g/dL (2.4-3.5); Glucose 376 mg/dL (70-105); Lipase 59 U/L (8-78); Potassium 3.8 mmol/L (3.5-5.1); Protein, Total 7.8 g/dL (6.0-8.3); Sodium 134 mmol/L (136-145)
[2021-11-18 04:12] LABS: Bacteria/HPF None Seen HPF (None Seen); Bilirubin Negative (Negative); Blood, Urine Negative (Negative); Clarity Clear (Clear); Glucose, Urine (Dipstick) Greater than 1000 mg/dL (Negative); Ketone, Urine Negative (Negative); Leukocyte Negative Leu/uL (Negative); Nitrite Negative (Negative); Protein, Urine (Dipstick) 30 mg/dL (Neg-Trace); RBC/HPF 0-3 HPF (0-3); Specific Gravity, Urine 1.027 (1.002-1.036); Squamous Epithelial 0-3 HPF (0-3); Urobilinogen Normal mg/dL (Less than 2)
[2021-11-18 04:27] LABS: #Lymphocytes 3.3 thou/uL (1.20-3.40); #Monocytes 0.7 thou/uL (0.11-0.59); #Neutrophils 6.3 thou/uL (1.40-6.50); %Basophils 0.2 % (0.0-1.0); %Eosinophils 0.2 % (0.0-10.0); %Monocytes 6.8 % (0.0-10.0); %Neutrophils 60.8 % (42.0-75.0); Hemoglobin 15.4 g/dL (12.0-16.0); Mean Corpuscular HGB CONC 34.3 g/dL (32.0-36.0); Mean Corpuscular Hemoglobin 30.7 pg (27.0-31.0); Mean Corpuscular Volume 89.3 fL (78.0-98.0); Mean Platelet Volume 7.5 fL (7.4-10.4); Platelet Count 225 thou/uL (130-400); RBC Distribution Width 12.1 % (11.5-14.5); Red Blood Cell (RBC) Count 5.02 mill/uL (4.20-5.40); White Blood Cell (WBC) Count 10.4 thou/uL (4.8-10.8)
== END 2021-11-18 04:51 | disposition home or self-care (01) ==
LOC: ERS 00:55
DX: N13.2 Hydronephrosis with renal and ureteral calculous obstruction (principal); E11.9 Type 2 diabetes mellitus without complications; Z87.891 Personal history of nicotine dependence; Z79.899 Other long term (current) drug therapy
CPT/HCPCS: 36415; 71045; 74176; 80053; 81003; 81015; 83690; 84484; 85025; 93005; 96374; 96375; J1885; J2270; J2405

== ENCOUNTER 2022-03-16 19:53 | Emergency (ER) | payer OTHER, MEDICAID ==
[2022-03-16] MEDS ORDERED: Ketorolac Tromethamine 30 MG/ML VIAL ONE (20:16)
== END 2022-03-16 21:51 | disposition home or self-care (01) ==
LOC: ERS 19:53
DX: S20.212A Contusion of left front wall of thorax, initial encounter (principal); V49.9XXA Car occupant (driver) (passenger) injured in unspecified traffic accident, initial encounter
CPT/HCPCS: 71046; 96372; J1885

== ENCOUNTER 2022-06-12 13:35 | Outpatient (CLI) | payer OTHER, MEDICAID | END 2022-06-12 13:36 | disposition home or self-care (01) | LOC: BICRAD 13:35 | PROVIDERS: ATTEND Surgery | DX: M54.2 Cervicalgia (principal); M54.50 Low back pain, unspecified; M47.817 Spondylosis without myelopathy or radiculopathy, lumbosacral region; M43.22 Fusion of spine, cervical region; M47.812 Spondylosis without myelopathy or radiculopathy, cervical region | CPT/HCPCS: 72040; 72100 ==

== ENCOUNTER 2023-01-12 11:29 | Outpatient (CLI) | payer OTHER, MEDICAID | END 2023-01-12 11:30 | disposition home or self-care (01) | LOC: ULT 11:29 | PROVIDERS: ATTEND Physician Assistant Medical | DX: R10.11 Right upper quadrant pain (principal); K90.0 Celiac disease | CPT/HCPCS: 76705 ==

== ENCOUNTER 2023-01-30 13:53 | Emergency (ER) | payer OTHER, MEDICAID ==
[2023-01-30] MEDS ORDERED: Diazepam 5 MG TAB ONE (15:52)
[2023-01-30] MEDS ORDERED: Ketorolac Tromethamine 30 MG/ML VIAL ONE (15:52)
== END 2023-01-30 15:59 | disposition home or self-care (01) ==
LOC: ERS 13:53
DX: S80.11XA Contusion of right lower leg, initial encounter (principal); M25.512 Pain in left shoulder; M25.511 Pain in right shoulder; M25.562 Pain in left knee; M62.838 Other muscle spasm; E11.9 Type 2 diabetes mellitus without complications; W18.30XA Fall on same level, unspecified, initial encounter
CPT/HCPCS: 96372; 99283; J1885

== ENCOUNTER 2023-06-09 06:32 | Inpatient (IN) | payer OTHER, MEDICAID ==
[2023-06-09] MEDS ORDERED: Meclizine HCl 25 MG TAB ONE (07:03)
[2023-06-09 07:11] LABS: #Monocytes 0.4 thou/uL (0.11-0.59); #Neutrophils 4.2 thou/uL (1.40-6.50); %Basophils 0.1 % (0.0-1.0); %Lymphocytes 34.2 % (21.0-51.0); %Monocytes 5.4 % (0.0-10.0); %Neutrophils 59.9 % (42.0-75.0); Hematocrit 42.1 % (36.0-47.0); Hemoglobin 13.9 g/dL (12.0-16.0); Mean Corpuscular Hemoglobin 29.2 pg (27.0-31.0); Mean Corpuscular Volume 88.4 fl (78.0-98.0); Mean Platelet Volume 9.1 fL (7.4-10.4); Platelet Count 195 10x3/uL (130-400); Red Blood Cell (RBC) Count 4.76 mill/uL (4.20-5.40); White Blood Cell (WBC) Count 7.1 10x3/uL (4.8-10.8)
[2023-06-09 07:51] LABS: ALT (SGPT) 53 U/L (8-55); AST (SGOT) 36 U/L (5-34); Albumin 4.1 g/dL (3.5-5.0); Alkaline Phosphatase 79 U/L (40-110); Anion Gap 16 mmol/L (10-20); BUN (Urea Nitrogen) 14 mg/dL (9.8-20.1); Bilirubin, Total 0.4 mg/dL (0.2-1.2); Calc. Creatinine Clearance 0 mL/min (70-130); Calcium 9.5 mg/dL (7.8-10.44); Carbon Dioxide 22 mmol/L (22-29); Chloride 106 mmol/L (98-107); Estimated GFR 99; Glucose 147 mg/dL (70-105); Protein, Total 7.1 g/dL (6.0-8.3); Sodium 140 mmol/L (136-145)
[2023-06-09] MEDS ORDERED: Ondansetron PF 4 MG/2 ML Vial ONE ×2 (09:51→10:33)
[2023-06-09] MEDS ORDERED: Acetaminophen 500 MG TAB ONE (09:51)
[2023-06-09] MEDS ORDERED: Bupivacaine PF 0.5% 30 ML VIAL ONE (11:03)
[2023-06-09 12:20] LABS: CSF Source CSF; Tube # 4
[2023-06-09 12:21] LABS: CSF Source CSF; Clarity Hazy (Clear); Tube # 1
[2023-06-09 12:24] LABS: Color Of CSF Supernatant COLORLESS (Colorless); Tube # 1; Unspun CSF Color PINK (Colorless)
[2023-06-09 12:46] LABS: CSF, Glucose 75 mg/dl (40-70); CSF, Protein 38 mg/dL (15-40)
[2023-06-09] MEDS ORDERED: HumaLOG 300 UNITS/3 ML VIAL SC PRN ×2 (13:08)
[2023-06-09] MEDS ORDERED: Dextrose 50% Abboject 50 ML SYRINGE SLOW IVP PRN (13:08)
[2023-06-09] MEDS ORDERED: Glucagon 1 MG/ML KIT IM PRN (13:08)
[2023-06-09] MEDS ORDERED: Dextrose 5% in Water 1,000 ML IV PRN (13:08)
[2023-06-09] MEDS ORDERED: Senokot S 8.6-50 MG TAB PO PRN (13:09)
[2023-06-09] MEDS ORDERED: Calcium Carbonate 500 MG ChewTAB PO PRN (13:09)
[2023-06-09 16:39] VITALS: BMI 39.9
[2023-06-09] MEDS: Ondansetron PF 4 MG/2 ML Vial IVP PRN (17:19)
[2023-06-09] MEDS: Sodium Chloride 0.9% 1,000 ML IV SCH (17:19)
[2023-06-09] MEDS: Meclizine HCl 12.5 MG TAB PO SCH (17:19)
[2023-06-09] MEDS: Icosapent Ethyl 1 GM CAPSULE PO SCH (17:20)
[2023-06-09] MEDS: Atorvastatin Calcium 40 MG TAB PO SCH (20:59)
[2023-06-09] MEDS: Cyclobenzaprine 10 MG TAB PO PRN (20:59)
[2023-06-10 04:39] LABS: #Monocytes 0.4 thou/uL (0.11-0.59); #Neutrophils 2.6 thou/uL (1.40-6.50); %Basophils 0.2 % (0.0-1.0); %Lymphocytes 47.7 % (21.0-51.0); %Monocytes 7.3 % (0.0-10.0); %Neutrophils 44.6 % (42.0-75.0); Hematocrit 40.2 % (36.0-47.0); Hemoglobin 12.7 g/dL (12.0-16.0); Mean Corpuscular HGB CONC 31.6 g/dL (32.0-36.0); Mean Corpuscular Hemoglobin 28.7 pg (27.0-31.0); Mean Platelet Volume 9.4 fL (7.4-10.4); Platelet Count 208 10x3/uL (130-400); RBC Distribution Width 13.2 % (11.5-14.5); Red Blood Cell (RBC) Count 4.42 mill/uL (4.20-5.40); White Blood Cell (WBC) Count 5.8 10x3/uL (4.8-10.8)
[2023-06-10 04:58] LABS: ALT (SGPT) 46 U/L (8-55); AST (SGOT) 41 U/L (5-34); Albumin 3.7 g/dL (3.5-5.0); Alkaline Phosphatase 59 U/L (40-110); Anion Gap 15 mmol/L (10-20); BUN (Urea Nitrogen) 12 mg/dL (9.8-20.1); Bilirubin, Total 0.3 mg/dL (0.2-1.2); Calc. Creatinine Clearance 127 mL/min (70-130); Calcium 9.1 mg/dL (7.8-10.44); Carbon Dioxide 26 mmol/L (22-29); Cardiac Risk 3.7 (Less than 4.5); Chloride 105 mmol/L (98-107); Cholesterol 141 mg/dl (< 200 Desired); Estimated GFR 87; Globulin 2.5 g/dL (2.4-3.5); Glucose 101 mg/dL (70-105); HDL Cholesterol 38 mg/dL (>60 Neg Risk); LDL Cholesterol, Calculated 79 mg/dL; Potassium 4.1 mmol/L (3.5-5.1); Protein, Total 6.2 g/dL (6.0-8.3); Sodium 142 mmol/L (136-145); Triglycerides 122 mg/dL (Less than 150)
[2023-06-10] MEDS ORDERED: Atorvastatin Calcium 10 MG TAB PO SCH (09:00)
[2023-06-10] MEDS: Diazepam 10 MG/2 ML SYRINGE IVP SCH (14:23)
[2023-06-10] MEDS ORDERED: Empagliflozin/Metformin Hcl [Synjardy 12.5-1,000 Mg Tablet] PO SCH (21:00)
[2023-06-11] MEDS: Meclizine HCl 25 MG TAB PO PRN (08:44)
[2023-06-11] MEDS: cefTRIAXone\\ROCEPHIN 2 GM in Sodium Chloride 0.9% 100 ML IVPB SCH (14:18)
[2023-06-11] MEDS ORDERED: Vancomycin (BATCH) 2 GM in Premix 1 BAG IVPB SCH (15:00)
[2023-06-11] MEDS: Vancomycin (BATCH) 2 GM in Premix 1 BAG IVPB SCH (15:29)
[2023-06-11] MEDS: Acetaminophen 325 MG TAB PO PRN (18:56)
[2023-06-11] MEDS ORDERED: Vancomycin 1 GM in Premix 1 BAG IVPB SCH (21:00)
[2023-06-12] MEDS ORDERED: Vancomycin (BATCH) 1.25 GM in Premix 1 BAG IVPB SCH (04:00)
[2023-06-13 04:45] LABS: #Monocytes 0.4 thou/uL (0.11-0.59); #Neutrophils 3.2 thou/uL (1.40-6.50); %Basophils 0.2 % (0.0-1.0); %Lymphocytes 35.1 % (21.0-51.0); %Monocytes 7.7 % (0.0-10.0); %Neutrophils 56.6 % (42.0-75.0); Hematocrit 42.2 % (36.0-47.0); Hemoglobin 13.6 g/dL (12.0-16.0); Mean Corpuscular HGB CONC 32.2 g/dL (32.0-36.0); Mean Platelet Volume 9.8 fL (7.4-10.4); Platelet Count 207 10x3/uL (130-400); RBC Distribution Width 12.9 % (11.5-14.5); Red Blood Cell (RBC) Count 4.69 mill/uL (4.20-5.40); White Blood Cell (WBC) Count 5.6 10x3/uL (4.8-10.8)
[2023-06-13 05:41] LABS: Anion Gap 12 mmol/L (10-20); BUN (Urea Nitrogen) 14 mg/dL (9.8-20.1); Calc. Creatinine Clearance 134 mL/min (70-130); Carbon Dioxide 27 mmol/L (22-29); Chloride 106 mmol/L (98-107); Estimated GFR 93; Glucose 133 mg/dL (70-105); Potassium 3.6 mmol/L (3.5-5.1); Sodium 141 mmol/L (136-145)
[2023-06-13 08:03] VITALS: BP 114/65; TEMP 97.6
== END 2023-06-13 10:17 | disposition home or self-care (01) | DRG 149 ==
LOC: SUATTDRO 06:32 → ERS 06:32 → ERHOLD 14:20 → 2SW 15:53 → OBSVTOIN 06-10 15:33
PROVIDERS: ADMIT Internal Medicine; ATTEND Internal Medicine
DX: H81.10 Benign paroxysmal vertigo, unspecified ear (principal); Z68.42 Body mass index [BMI] 45.0-49.9, adult; D32.9 Benign neoplasm of meninges, unspecified; E78.5 Hyperlipidemia, unspecified; E11.9 Type 2 diabetes mellitus without complications; R51.9 Headache, unspecified; E66.01 Morbid (severe) obesity due to excess calories; Z79.2 Long term (current) use of antibiotics; Z79.82 Long term (current) use of aspirin; Z79.899 Other long term (current) drug therapy
CPT/HCPCS: 36415; 36416; 62270; 70450; 70496; 70551; 80048; 80053; 80061; 82945; 83036; 84157; 85025; 87070; 87077; 87186; 87205; 89051; 93005; 93306; 96374; 96375; 96376; G0378; J0665; J0696; J2405; J3360; J3370; J3490; J7050